=== PATIENT | female | born 2000 | race Two or more races ===

== ENCOUNTER 2025-02-25 21:52 | Emergency (ER) | payer OTHER ==
[~2025-02-25] VITALS: Ht 170.2 cm; Wt 59.0 kg
[2025-02-25] MEDS ORDERED: TRAMADOL HCL 50 MG TABLET PO ONE (23:15)
[2025-02-26] MEDS ORDERED: NORFLEX100MG PO (02:46)
== END 2025-02-26 02:50 | disposition home or self-care (01) ==
LOC: ER 21:52
DX: S29.8XXA Other specified injuries of thorax, initial encounter (principal); V49.88XA Car occupant (driver) (passenger) injured in other specified transport accidents, initial encounter; Y93.89 Activity, other specified; Y92.89 Other specified places as the place of occurrence of the external cause; Y99.8 Other external cause status; R07.89 Other chest pain; M79.10 Myalgia, unspecified site